=== PATIENT | male | born 1995 | race Caucasian/White ===

== ENCOUNTER → 2017-02-24 | Outpatient (CLI) | payer BC ==
[~2017-02-24] MED LIST: CEPH-507 PO
[2017-02-24 16:16] VITALS: BP 138/79
--- NOTE | 2017-02-24 16:16 | Urgent Care T Sheet Gen (E) ---
Intake General Temperature (Fahrenheit): 100.0 Pulse: 78 Blood Pressure Systolic: 138 Blood Pressure Diastolic: 79 Respirations: 18 SPO2: 96 Description of Symptoms Patient presents with redness, swelling and pain to the L buttock. On Monday, patient states he was getting ready for work. [place] sluggish and thought he was low in testosterone (no history of this). His friend had some pre-filled syringes, unsure where they came from. His friend then injected his L buttock. Patient went to work however over the next few days, noticed pain, redness and swelling to the area. No numbness or weakness in the leg. No drainage from the injection site. Took some ibuprofen earlier this morning. History of Present Illness Allergies: Coded Allergies: No Known Drug Allergies (Unverified , 05/29/15) Home Meds Active Scripts Cephalexin (Keflex)500 Mg [id number] Mg PO QID Infection #28 CAP Ref 0 Prov:JEANNINE PEREZ 02/24/17 Respiratory Constitutional Symptoms: Fever Skin: Change in color Lesions All Other Systems Reviewed Remaining Systems: All other systems reviewed with negative findings Past Cxwlvmk-Yhqfdt-Thxomg Hx Patient's Social History Alcohol Use: Denies Use Surgeries/Hospitalizations Hospitalization/Surgery Hx: healthy Physical Exam Physical Exam General Appearance: WD/WN No apparent distress Skin Exam: Other (examination of the L buttock reveals redness, approx 6inch in diameter. the redness is raised and firm. blanchable and warm. I couldn't see the injection spot.) Neurologic/Psychiatric Exam: No motor deficits No sensory deficits Departure Urgent Care Impression Impression: Primary Impression: Skin infection Departure Disposition: 01 HOME OR SELF-CARE Condition: Stable Additional Instructions: I have started the patient on Keflex x 7 days This could be an allergic reaction or an infection at the injection site. I am treating it as an infection as the patient is running a temp. Suggested he use cold compress to the area. Continue with Motrin. May take an antihistamine as well even though the area doesn't itch Advised the patient against using any meds which are not prescribed to him, johnathon injectables since he doesn't know the source, dosage amount, etc Return as needed Patient understands DC instructions. All questions were answered. Scripts Cephalexin (Keflex)500 Mg [id number] Mg PO QID Infection #28 CAP Ref 0 Prov:JEANNINE PEREZ 02/24/17 End of report . JEANNINE PEREZ Feb 24, 2017 16:05
== END ==
LOC: MHUC 15:40
PROVIDERS: ATTEND Physician Assistant
DX: L08.9 Local infection of the skin and subcutaneous tissue, unspecified (principal)
CPT/HCPCS: 99213

== ENCOUNTER 2017-03-11 22:24 | Emergency (ER) | payer BC ==
[~2017-03-11] VITALS: Ht 182.9 cm; Wt 82.0 kg
--- OUTSIDE RECORDS SUMMARY | 2017-03-11 22:28 | XMS REPORT | Continuity of Care Document ---
Author Author [facility] Address Unknown Phone Unavailable Allergies Active Description Code Type Severity Reaction Onset Reported/Identified Relationship to Patient Clinical Status Yes No Known Drug Allergies [id number] Drug Allergy Unknown N/ A 05/29/2015 Medications Problems Date Dx Coded Attending Type Code Diagnosis Diagnosed By 06/17/2015 Eusebia New APRN Ot 462 06/16/2016 Eusebia New APRN Ot 462 ACUTE PHARYNGITIS 02/24/2017 Eusebia New APRN Ot 462 ACUTE PHARYNGITIS 02/28/2017 JEANNINE OBRIEN Ot L08.9 LOCAL INFECTION OF THE SKIN AND SUBCUTAN Procedures Results Encounters ACCT No. Visit Date/Time Discharge Status Pt. Type Provider Facility Loc./Unit Complaint [id number] 05/29/2015 17:17:00 2014 23:59:59 CLS Outpatient Eusebia [facility] [id number] 02/24/2017 15:40:00 [facility]
--- OUTSIDE RECORDS SUMMARY | 2017-03-11 22:32 | XMS REPORT | Continuity of Care Document ---
Author Author [facility] Address Unknown Phone Unavailable Allergies Active Description Code Type Severity Reaction Onset Reported/Identified Relationship to Patient Clinical Status Yes No Known Drug Allergies [id number] Drug Allergy Unknown N/ A 05/29/2015 Medications [...] Status Pt. Type Provider Facility Loc./Unit Complaint [id number] 05/29/2015 17:17:00 2014 23:59:59 CLS Outpatient Eusebia [facility] [id number] 02/24/2017 15:40:00 [facility]
[2017-03-12 04:04] VITALS: BP 128/92
== END 2017-03-11 23:20 | disposition home or self-care (01) ==
LOC: ED 22:28
DX: M79.89 Other specified soft tissue disorders (principal)
CPT/HCPCS: 99281; 99282